=== PATIENT | female | born 1975 | race Caucasian/White ===

== ENCOUNTER 2021-07-26 18:34 | Emergency (ER) | payer OTHER ==
[~2021-07-26] VITALS: Ht 157.5 cm; Wt 91.0 kg
[2021-07-26] MEDS ORDERED: KETOROLAC 60MG/2ML VIAL IM STA (20:29)
[2021-07-26] MEDS ORDERED: LORAZEPAM 0.5MG TABLET PO ONE (20:30)
[2021-07-26] MEDS ORDERED: CYCL25PO15 MT (23:46)
[2021-07-26] MEDS ORDERED: NAPR-681 MT (23:46)
[2021-07-27 00:07] VITALS: BP 145/90
== END 2021-07-27 00:08 | disposition home or self-care (01) ==
LOC: ER 18:34
DX: M54.50 Low back pain, unspecified (principal); J45.909 Unspecified asthma, uncomplicated
CPT/HCPCS: 81025; 96372; 99283; J1885